=== PATIENT | female | born 1960 | race Caucasian/White ===

== ENCOUNTER 2018-09-03 08:27 | Outpatient (REF) | payer OTHER ==
[~2018-09-03] VITALS: Ht 162.6 cm; Wt 63.5 kg
[~2018-09-03 08:27] MED LIST: CALCIUM/D250 MG PO; LEVOTHYROXIN50 MCG PO; PROLIA60 MG/ML SC
== END 2018-09-03 08:48 | disposition home or self-care (01) | DRG 554 ==
LOC: INF 08:27
PROVIDERS: ATTEND Nurse Practitioner Adult Health
DX: M81.0 Age-related osteoporosis without current pathological fracture (principal)
CPT/HCPCS: J0897

== ENCOUNTER 2022-08-21 07:01 | Day surgery (SDC) | payer OTHER ==
[~2022-08-21] VITALS: Ht 165.1 cm; Wt 57.2 kg
[2022-08-21 08:57] VITALS: BP 111/72
== END 2022-08-21 09:10 | disposition home or self-care (01) | DRG 951 ==
LOC: ENDO 07:01
PROVIDERS: ATTEND Internal Medicine Gastroenterology
PROC: 0DJD8ZZ Inspection of Lower Intestinal Tract, Via Natural or Artificial Opening Endoscopic (ICD-10-PCS; principal; 2022-08-21)
DX: Z12.11 Encounter for screening for malignant neoplasm of colon (principal); Q43.9 Congenital malformation of intestine, unspecified; K64.8 Other hemorrhoids